=== PATIENT | female | born 1940 | race Caucasian/White ===

== ENCOUNTER → 2019-04-06 | Outpatient (CLI) | payer MEDICARE | END | disposition home or self-care (01) | LOC: CVU 10:49 | PROVIDERS: ATTEND Surgery | DX: I65.23 Occlusion and stenosis of bilateral carotid arteries (principal); I10 Essential (primary) hypertension; E78.5 Hyperlipidemia, unspecified | CPT/HCPCS: 93880 ==

== ENCOUNTER → 2020-05-10 | Outpatient (CLI) | payer MEDICARE | END | disposition home or self-care (01) | LOC: CFH 09:46 | PROVIDERS: ATTEND Nurse Practitioner Family | DX: Z12.31 Encounter for screening mammogram for malignant neoplasm of breast (principal); N95.9 Unspecified menopausal and perimenopausal disorder | CPT/HCPCS: 77063; 77067; 77080 ==